=== PATIENT | female | born 1960 | race Caucasian/White ===

== ENCOUNTER 2024-03-11 13:59 | Emergency (ER) | payer OTHER ==
[2024-03-11 14:08] VITALS: BP 131/84; PULSE 74; RESP 18; TEMP 98.5; BMI 29.5
[2024-03-11] MEDS ORDERED: ACETAMINOPHEN 325 MG TABLET (FP) ONE (14:45)
[2024-03-11] MEDS: ACETAMINOPHEN 500 MG TABLET (FP) PO ONE (14:47)
== END 2024-03-11 16:10 | disposition home or self-care (01) ==
LOC: JERFT 13:59 → JER 13:59 → JERFT 16:10
DX: S52.501A Unspecified fracture of the lower end of right radius, initial encounter for closed fracture (principal); S52.611A Displaced fracture of right ulna styloid process, initial encounter for closed fracture; W01.0XXA Fall on same level from slipping, tripping and stumbling without subsequent striking against object, initial encounter
CPT/HCPCS: 73110-TC-RT-FY; 73130-TC-RT-FY; 73564-TC-RT-FY; 99284-25